=== PATIENT | female | born 2000 ===

== ENCOUNTER 2024-07-18 04:13 | Emergency (ER) | payer SELFPAY ==
[2024-07-18] VITALS (24 sets, daily range): BP systolic 103–165; BP diastolic 54–123; PULSE 67–98; RESP 12–30; TEMP 36.7–36.8; O2SAT 93–100
[2024-07-18 04:17] LABS: Abs Immature Grans 0.07 10^3/uL (0.0-0.06); Absolute Lymphocyte Count 5.94 10^3/uL (1.2-3.4); Absolute Monocyte Count 0.63 10^3/uL (0.1-0.8); Basophils % 0.6 %; Eosinophils % 1.2 %; HCT 40.7 % (36.0-46.0); HGB 13.9 g/dL (11.2-15.7); Immature Grans % 0.4 %; Lymphocytes % 34.8 %; MCH 29.8 pg (27.0-33.0); MCHC 34.2 % (32.0-36.0); MCV 87 fL (80-95); MPV 9.6 fL (8.0-11.0); Monocytes % 3.7 %; Neutrophils % 59.3 %; Platelet Count 340 10^3/uL (130-400); RBC 4.66 10^6/uL (3.93-5.22); RDW 12.5 % (11.7-14.6); RDW-SD 39.5 fL; WBC 17.08 10^3/uL (4.4-10.8)
[2024-07-18 04:23] LABS: ALT 9 U/L (14-59); AST 24 U/L (15-37); Albumin 4.1 g/dL (3.4-5.0); Alkaline Phosphatase 51 U/L (46-116); Anion Gap 12.3 mmol/L (3-11); BUN 11 mg/dL (7-18); Bilirubin, Total 0.47 mg/dL (0.2-1.0); CO2 22.7 mmol/L (21.0-32.0); CREATININE 0.8 mg/dL (0.55-1.02); Calcium 8.8 mg/dL (8.5-10.1); Chloride 104 mmol/L (98-107); ETHANOL BLOOD 193.4 mg/dL (<10); Estimated GFR 106.77 (mL/min/1.73m2); Glucose 106 mg/dL (74-106); Potassium 3.9 mmol/L (3.5-5.1); Sodium 139 mmol/L (136-145); Total Protein 8.5 g/dL (6.4-8.2)
[2024-07-18 04:24] LABS: Bilirubin Negative (Negative); Blood Negative (Negative); Clarity Clear (Clear); Glucose Negative (Negative); Ketones Negative (Negative); Leukocyte Esterase Trace (Negative); Nitrite Negative (Negative); Urobilinogen 0.2 mg/dL (Up to 0.2)
[2024-07-18 04:27] LABS: Absolute Neutrophil Count 10.13 10^3/uL (1.2-6.7); Diff Comment Diff Reviewed; RBC Morphology Normal
[2024-07-18 04:29] LABS: Epithelial Cells Few HPF (Negative); RBC Negative HPF (0-2)
[2024-07-18 04:30] LABS: Bacteria Rare HPF (Negative); C & S Indicated? No; Casts Negative LPF (Negative); Crystals Negative HPF (Negative); Mucus Negative (Negative)
--- NOTE | 2024-07-18 04:32 | ED.GENADUL_ITS ---
Discharge Plan Discharge Details Chief Complaint: AMS/LOC Primary Care Provider: Unknown,Unknown ED Provider: Paola Littlejohn HPI General Mode of arrival: EMS . Date/Time Provider Initiated Documentation: 07/18/24 04:27 . Limitations to Documentation: altered mental status . Information obtained by: patient, family and EMS . HPI Narrative: HPI: This is a 24-year-old transgender male patient, name Jeffy, brought in by EMS for intoxication. The patient reports that he had 2 or 3 drinks tonight, states that the third was a twisted tea in a plastic bag that was half gone that a man told him to drink. The patient reports that he is concerned that there may have been something in the drink, states that he has not used any o ther substances tonight other than marijuana. The patient is complaining of pain in his chest when he breathes, as well as pain of his left cheekbone that was caused when his head tipped forward and hit the shifter of the car he was being transported in. The patient is being treated for pyelonephritis, is on cephalexin and has been taking that medication typically. Collateral information was obtained from the patient's girlfriend, who states that they were at a alliance party and the patient was imbibing heavily, having a large number of beers. They had vomited several times prior to transport, or lying down on the ground. In the car the patient was throwing his head [id number], and did strike his head on the shifter of the car. EMS notes that the patient had a normal blood sugar, was hemodynamically appropriate, though confused. He received a total of 1 L of IV fluids from EMS and continued into the hospital. Exam: Gen: Awake and alert, upset and appears clinically intoxicated HEENT: Non-icteric sclera, pupils are equal and reactive, 4 mm, patient unable to participate in nystagmus examination. There is a 2 mm well-approximated laceration without bleeding just inferior to the left eye with some tenderness over the left zygomatic process without crepitus, facial instability or bleeding. No septal hematoma, nasal bridge nontender and without deformity, no dental malocclusion or tongue trauma Neck: Supple, full range of motion Lungs: No apparent respiratory distress, normal respiratory effort. Lung sounds clear and equal CV: Appears well perfused, heart with regular rate and rhythm, strong distal pulses Abdomen: Non-distended, soft, nontender MSK: Moves 4 extremities without apparent limitation in ROM Skin: Visualized skin without rashes, cyanosis. Neuro: Unable to ambulate, no obvious focal deficits or facial asymmetry. Oriented to person, but not place, time, or event. Follows simple commands, occasionally requires loud voice and noxious stimuli to awaken MDM: This is a 24-year-old transgender male patient presenting for evaluation of intoxication. Differential includes but is not limited to acute alcohol intoxication, also considered comorbid substance use whether purposeful or surreptitiously given. Considered traumatic injury, though the mechanism of injury of striking his head while moving it in a car is fairly low risk and he has no evidence of severe external trauma. I considered metabolic and electrolyte derangements, I considered complications from his pyelonephritis, and regarding his chest pain with breathing did consider pneumonia, bronchitis, chest wall injury, arrhythmia. The patient is young and without significant risk factors to suggest ACS or aortic pathology. We will obtain laboratory studies to include CBC, CMP, magnesium, ethanol and serum tox screen, urinalysis, U preg, and urine tox screen. ED Course: Laboratory studies reveal a leukocytosis to 17 (given his recent pyelonephritis, unclear if this is actually decreasing given his use of antibiotics, and certainly could represent demargination in the setting of significant vomiting), but no anemia or thrombocytopenia. Chemistry panel without significant electrolyte derangements, evidence of kidney dysfunction or liver disease. Urinalysis shows no evidence of infection suggesting that the cephalexin is effective. Ethanol level elevated to 193, THC positive but urine drug screen otherwise negative. The patient continued to be quite difficult to awaken on my reevaluation, and I suspect that he will require more time to metabolize before he is clinically sober and safe for discharge. I signed out care of this patient to the oncoming provider pending reevaluation after metabolization. Paola Littlejohn MD General Stated Complaint: ETOHWithdr MORGAN: 3 Course Vital Signs Vital signs: Vital Signs Temperature 36.8 C 07/18/24 04:04 Pulse 95 H 07/18/24 04:04 Respiratory Rate 16 07/18/24 04:04 Blood Pressure 139/85 07/18/24 04:04 Pulse Oximetry 100 07/18/24 04:04 Temperature 36.8 C 07/18/24 04:04 Pulse 95 H 07/18/24 04:04 Respiratory Rate 16 07/18/24 04:04 Respiratory Effort Normal 07/18/24 04:24 Respiratory Depth Normal 07/18/24 04:24 Respiratory Pattern Tachypnea 07/18/24 04:24 Blood Pressure 139/85 07/18/24 04:04 Pulse Oximetry 100 07/18/24 04:04 Oxygen Delivery Method Room Air 07/18/24 04:04 Oxygen Flow Rate 0 07/18/24 04:04 Pain Level 8 07/18/24 04:04 Lab/Test Results Lab/Test Results: Laboratory Tests Range/Units 07/18/24 07/18/24 03:55 04:13 WBC (4.4-10.8) 10^3/uL 17.08 H RBC (3.93-5.22) 10^6/uL 4.66 Hgb (11.2-15.7) g/dL 13.9 Hct (36.0-46.0) % 40.7 MCV (80-95) fL 87 MCH (27.0-33.0) pg 29.8 MCHC (32.0-36.0) % 34.2 RDW (11.7-14.6) % 12.5 Plt Count (130-400) 10^3/uL 340 MPV (8.0-11.0) fL 9.6 Immature Gran % % 0.4 Neutrophils % % 59.3 Lymphocytes % % 34.8 Monocytes % % 3.7 Eosinophils % % 1.2 Basophils % % 0.6 Nucleated RBC % (0.0-0.3) % 0.0 Absolute Neutrophils (1.2-6.7) 10^3/uL 10.13 H Absolute Lymphocytes (1.2-3.4) 10^3/uL 5.94 H Absolute Monocytes (0.1-0.8) 10^3/uL 0.63 Absolute Eosinophils (0.0-0.7) 10^3/uL 0.20 Absolute Basophils (0.0-0.2) 10^3/uL 0.10 RBC Morphology Normal Sodium (136-145) mmol/L 139 Potassium (3.5-5.1) mmol/L 3.9 Chloride (98-107) mmol/L 104 Carbon Dioxide (21.0-32.0) mmol/L 22.7 Anion Gap (3-11) mmol/L 12.3 H BUN (7-18) mg/dL 11 Creatinine (0.55-1.02) mg/dL 0.8 Est GFR (CKD-EPI 2020) (mL/min/1.73m2) 106.77 Glucose (74-106) mg/dL 106 Calcium (8.5-10.1) mg/dL 8.8 Magnesium (1.8-2.4) mg/dL 2.0 Total Bilirubin (0.2-1.0) mg/dL 0.47 AST (15-37) U/L 24 ALT (14-59) U/L 9 L Alkaline Phosphatase (46-116) U/L 51 Total Protein (6.4-8.2) g/dL 8.5 H Albumin (3.4-5.0) g/dL 4.1 Urine Color (Yellow) Yellow Urine Clarity (Clear) Clear Urine pH (5-8) 6.0 Ur Specific [place] (1.005-1.025) 1.010 Urine Protein (Neg-Trace) mg/dL Negative Urine Ketones (Negative) mg/dL Negative Urine Blood (Negative) Negative Urine Nitrite (Negative) Negative Urine Bilirubin (Negative) Negative Urine Urobilinogen (Up to 0.2) mg/dL 0.2 Ur Leukocyte Esterase (Negative) Trace H Urine RBC (0-2) HPF Negative Urine WBC (0-5) HPF 3-5 Ur Epithelial Cells (Negative) HPF Few Urine Crystals (Negative) HPF Negative Urine Bacteria (Negative) HPF Rare Urine Casts (Negative) LPF Negative Urine Mucus (Negative) Negative Ur Culture Indicated? No Urine Glucose (Negative) mg/dL Negative Ethyl Alcohol (<10) mg/dL 193.4 H POC- Test(urine) Negative Medical Decision Making Quality:[facility] Health Related Social Needs: No Data to Display [facility] Social History Smoking risk assessment performed?: No Alcohol Intake: current Details: unable to obtain d/t pt condition Additional Social history: unable to obtain d/t pt condition PAWSS Have you Been Recently Intoxicated or Drunk Within the Last 30 days?: Yes Have you Ever Experienced Previous Episodes of Alcohol Withdrawal?: Unable to Obtain Have you ever Experienced Withdrawal Seizures?: Unable to Obtain Have you ever Experienced Delirium Tremens(DT)s?: Unable to Obtain Have you ever undergone Alcohol Rehabilitation Treatment (i.e, inpt ot outpatient treatment programs)?: Unable to Obtain Have you ever Experienced Blackouts?: Unable to Obtain Have you ever Combined Alcohol with other Downers within the last 90 days?: Unable to Obtain Have you ever Combined Alcohol with any other Substance of Abuse during the last 90 days?: Unable to Obtain Positive Blood Alcohol level on Presentation? [PCS.BAL]: Unable to Obtain Evidence of Increased Autonomic Activity (i.e. HR>120, tremor, sweating, agitation, nausea)?: Unable to Obtain Result: 1
[2024-07-18 04:34] LABS: *AMPHETAMINES SCREEN URINE Negative (Negative); *BARBITURATES SCREEN URINE Negative (Negative); *BENZODIAZEPINES SCREEN URINE Negative (Negative); Cannabinoids THC Positive (Negative); Cocaine Screen,Urine Negative (Negative); METHADONE URINE SCREEN Negative (Negative); OPIATES URINE SCREEN Negative (Negative)
[2024-07-18 04:36] LABS: Tricyclic Antidepressants Negative (Negative)
--- NOTE | 2024-07-18 04:44 | DI.RAD_ITS ---
Exam(s) XR PORTABLE CHEST AP EXAM: XR PORTABLE CHEST AP CLINICAL HISTORY: CP/SOB. TECHNIQUE: 2D digital imaging was performed. COMPARISON: No exams were available for comparison FINDINGS: Single AP portable view. Heart size is upper normal. The mediastinum is not widened. Lungs are clear. No infiltrates nor obvious pleural effusions. IMPRESSION: No acute pulmonary findings on this single AP portable view of the chest. DATA REPOSITORY: RADIATION DOSE DELIVERED:
--- NOTE | 2024-07-18 04:48 | DI.VRAD_ITS ---
PROCEDURE INFORMATION: Exam: XR Chest Exam date and time: 07/18/2024 4:40 AM Age: 24 years old Clinical indication: Shortness of breath; Chest pressure; Patient HX: Chest pain, SOB, etho TECHNIQUE: Imaging protocol: Radiologic exam of the chest. Views: 1 view. COMPARISON: No relevant prior studies available. FINDINGS: Lungs: Unremarkable. No consolidation. Pleural spaces: Unremarkable. No pleural effusion. No pneumothorax. Heart/Mediastinum: Unremarkable. No cardiomegaly. Bones/joints: Unremarkable. IMPRESSION: No acute findings. Dictated and Authenticated by: Alden Ledesma MD. Ordering:RASHEED Arroyo MD
[2024-07-18] MEDS: Ondansetron 4 MG/2 ML VIAL (05:58)
[2024-07-18] MEDS: Acetaminophen 500 MG TAB 1000 MG PO (08:15)
[2024-07-18] MEDS: Mylanta Suspension 30 ML CUP PO (08:16)
--- NOTE | 2024-07-18 09:24 | ED.PROG_ITS ---
Date of service: 07/18/24 Time of Service: 09:24 Medical Decision Making Patient was signed out to me by colleague Dr. Littlejohn. Please refer to HPI, physical exam, assessment and plan. At time of transition we are awaiting sobriety and reassessment. On reassessment patient is feeling better, still mild upset stomach, but tolerating p.o. Patient has been rehydrated. Vital signs of normalized. Repeat abdominal exam shows no reproducible abdominal tenderness whatsoever, no evidence of an acute surgical abdomen. Will give some Carafate and Maalox at time of discharge. Patient is on antibiotics for Manohar, he has no fever. And otherwise is notably improving. Family and patient are requesting discharge home. I feel that this is notably reasonable. Patient remained stable. Patient will be discharged. Discussed red flags which to return. I have extensively reviewed the treatment plan and discharge instructions with the patient and their family. I have addressed all patient concerns at this time. The patient and family was made aware of what symptoms to monitor for that would warrant a return to the emergency department. Discussed the plan with the patient and family, they demonstrate verbal understanding and agreement with our assessment and plan at this time. The documentation in this chart was dictated using [employer] dictation software. Please excuse any dictation errors. Quality:[facility] Health Related Social Needs: No Data to Display Discharge Plan Disposition Patient Disposition: Home Condition: Improving Discharge Details Clinical Impression: Alcohol intoxication Primary Care Provider: Unknown,Unknown ED Provider: Alberto Mcgowan Home Meds and New Rx's Prescriptions: New sucralfate [Carafate] 1 gram tablet 1 g PO BID Qty: 60 0RF Discharge Instructions Instructions: Alcohol Intoxication ED Additional Instructions: At this time you have been rehydrated, your electrolytes are normal and your vital signs of improved. Please stay well-hydrated, avoid alcohol, take Tums as needed. We have sent a prescription for Carafate to help with stomach irritation. Please take this as needed for continued upset stomach. If you notice any worsening of your symptoms, or any new symptoms such as vomiting, diarrhea, fever, chills, shortness of breath, chest pain, numbness, weakness, or fainting , please return immediately to the emergency department for reevaluation. Please follow up with your primary care provider as soon as possible for reassessment and reevaluation. As always, it was a pleasure participating in your medical care today.
[2024-07-18] MEDS: MYLANTA 30 ML, LIDOCAINE 2% VISCOUS UD 15 ML PO (09:34)
[2024-07-18] MEDS: Sucralfate 1 GM TAB PO (09:34)
[2024-07-18] MEDS: Ondansetron O.D.T. 4 MG TABEF, 3 TABS/BTL PO (09:36)
== END 2024-07-18 10:05 | disposition home or self-care (01) ==
PROVIDERS: Emergency Medicine; Emergency Provider Student in an Organized Health Care Education/Training Program
DX: F10.929 Alcohol use, unspecified with intoxication, unspecified (principal); R10.9 Unspecified abdominal pain; N10 Acute pyelonephritis
CPT/HCPCS: 00123; 36415; 51701; 80053; 80307; 81025; 99284; 71045; 80320; 80329; 81003; 81015; 83735; 85025; J2405